=== PATIENT | female | born 1960 | race Caucasian/White ===

== ENCOUNTER 2016-06-30 10:26 | Emergency (ER) | payer MEDICAID ==
[~2016-06-30] VITALS: Ht 160 cm; Wt 91.0 kg
[~2016-06-30 10:26] MED LIST: HYDR-3498 PO; NAPR-688 PO
[2016-06-30 10:31] VITALS: Ht 160 cm; Wt 91.0 kg
[2016-06-30] MEDS ORDERED: hydrALAzine 20 MG INJ IV ONE (11:00)
--- NOTE | 2016-06-30 11:18 | RADRPT ---
PROCEDURE: XR Chest. CLINICAL INDICATION: Chest pain TECHNIQUE: Single frontal view of the chest was obtained. COMPARISON: 01/01/2015 FINDINGS: The heart is within normal limits. The thoracic aorta is calcified. The lungs are clear. There is no pleural effusion or pneumothorax. RPTAT: AA IMPRESSION: No acute disease. Calcified aorta consistent with atherosclerotic disease. .Tyson Hernandez MD, MD Date Time Electronically viewed and signed by .Tyson Hernandez MD, on 06/30/2016 11:18 .S/
[2016-06-30 12:10] LABS: ADD SCAN DIFF NO
[2016-06-30 12:11] LABS: BASOPHILS % 0.2 % (0.0-2.0); EOSINOPHILS # 0.1 10^3/ul (0.0-0.5); EOSINOPHILS % 2.3 % (0.0-7.0); HEMATOCRIT 38.6 % (37.0-47.0); HEMOGLOBIN 13.4 g/dl (12.0-16.0); LYMPHOCYTES # 1.6 10^3/ul (0.8-2.9); LYMPHOCYTES % 30.9 % (15.0-51.0); MEAN CORPUSCULAR HEMOGLOBIN 27.9 pg (29.0-33.0); MEAN CORPUSCULAR HGB CONC 34.7 g/dl (32.0-37.0); MEAN CORPUSCULAR VOLUME 80.4 fl (82.0-101.0); MEAN PLATELET VOLUME 10.8 fl (7.4-10.4); MONOCYTE # 0.4 10^3/ul (0.3-0.9); MONOCYTES % 6.6 % (0.0-11.0); NEUTROPHIL # 3.2 10^3/ul (1.6-7.5); NEUTROPHILS % 59.8 % (39.0-77.0); PLATELET COUNT 183 10^3/UL (140-415); RED CELL DISTRIBUTION WIDTH 13.1 % (11.5-14.5); WHITE BLOOD COUNT 5.3 10^3/ul (4.8-10.8)
[2016-06-30 12:29] LABS: INR 1.02; PROTIME 13.4 Sec (12.2-14.2)
[2016-06-30 12:32] LABS: ANION GAP 11 (8-16); BLOOD UREA NITROGEN 13 mg/dl (7-20); CALCIUM 8.6 mg/dl (8.4-10.2); CARBON DIOXIDE 26 mmol/L (21-31); CHLORIDE 106 mmol/L (97-110); CREATININE 0.55 mg/dl (0.44-1.00); GLUCOSE 102 mg/dl (70-220); POTASSIUM 3.6 mmol/L (3.5-5.1); SODIUM 139 mmol/L (135-144)
[2016-06-30 12:45] LABS: TROPONIN-I < 0.010 ng/ml (0.00-0.12)
[2016-06-30] MEDS ORDERED: HYD25 PO (12:52)
--- NOTE | 2016-06-30 12:52 | ERD ---
ER Documentation Chief Complaint Date/Time DATE: 06/30/16 TIME: 12:50 Chief Complaint pt sent by clinic with HTN, clondine given there, pt has NO hx htn HPI This is a 35-year-old female who presents to the emergency room after being sent by her clinic for evaluation of hypertension. This patient has no history of hypertension in the past. This patient was given 0.1 mg of clonidine p.o. She has no complaints of chest pain, dizziness, headache, shortness of breath or palpitations. She has no complaints at all and came to the ER for evaluation of asymptomatic hypertension ROS All systems reviewed and are negative except as per history of present illness. Medications Home Meds Discontinued Scripts Naproxen* (Naproxen*) 500 Mg Tablet, 500 MG PO BID Y for PAIN, #30 TAB Prov:CORY DIXON DO 05/27/15 Hydrocodone Bit-Acetaminophen* ([place]*) 5-325 Mg Tab, 1 TAB PO Q6 Y for PAIN, # 20 TAB Prov:CORY DIXON DO 05/27/15 Allergies Allergies: Coded Allergies: No Known Allergy (Unverified , 06/30/16) PMhx/Soc Medical and Surgical Hx: pt denies Medical Hx, pt denies Surgical Hx History of Surgery: Yes (tubal ligation, hernia surgery) Anesthesia Reaction: No Hx Neurological Disorder: No Hx Respiratory Disorders: No Hx Cardiac Disorders: No Hx Psychiatric Problems: No Hx Miscellaneous Medical Probl: No Hx Alcohol Use: No Hx Substance Use: No Hx Tobacco Use: No Smoking Status: Never smoker Physical Exam Vitals Vital Signs Date Time Temp Pulse Resp B/P Pulse Ox O2 Delivery O2 Flow Rate FiO2 06/30/16 12:12 Nasal Cannula 06/30/16 10:31 98.3 84 16 243/117 97 Physical Exam INITIAL VITAL SIGNS: Reviewed by me GENERAL: The patient is well developed and appropriate for usual state of health in no apparent distress HEENT: Pupils equal, round, and reactive to light. EOMI. There is no scleral icterus. NECK: C-spine is soft and supple, there is no meningismus. There is no cervical lymphadenopathy. LUNGS: Clear to auscultation bilaterally. There are no rales, wheezes or rhonchi. HEART: Regular rate and rhythm, no murmurs, clicks, rubs or gallops. ABDOMEN: Soft, non-tender, non-distended. There are bowel sounds in all four quadrants. No rebound or guarding. EXTREMITIES: There is no peripheral cyanosis or edema. No focal swelling or erythema. NEUROLOGICAL: The patient moves all four extremities with 5/5 strength. Cranial nerves II - XII are intact. Normal gait. Alert and oriented SKIN: There is no apparent rash or petechiae. HEME/LYMPHATIC: There is no evidence of excessive bruising or lymphedema. PSYCHIATRIC: The patient does not appear anxious or depressed. Result Diagram: 06/30/16 1155 06/30/16 1155 Results 24 hrs Laboratory Tests Test 06/30/16 11:55 White Blood Count 5.310^3/ul Red Blood Count 4.8010^6/ul Hemoglobin 13.4g/dl Hematocrit 38.6% Mean Corpuscular Volume 80.4fl Mean Corpuscular Hemoglobin 27.9pg Mean Corpuscular Hemoglobin Concent 34.7g/dl Red Cell Distribution Width 13.1% Platelet Count 09812^3/UL Mean Platelet Volume 10.8fl Neutrophils % 59.8% Lymphocytes % 30.9% Monocytes % 6.6% Eosinophils % 2.3% Basophils % 0.2% Nucleated Red Blood Cells % 0.0/100WBC Neutrophils # 3.210^3/ul Lymphocytes # 1.610^3/ul Monocytes # 0.410^3/ul Eosinophils # 0.110^3/ul Basophils # 0.010^3/ul Nucleated Red Blood Cells # 0.010^3/ul Prothrombin Time 13.4Sec Prothrombin Time Ratio 1.0 INR International Normalized Ratio 1.02 Activated Partial Thromboplast Time 27.0Sec Sodium Level 139mmol/L Potassium Level 3.6mmol/L Chloride Level 106mmol/L Carbon Dioxide Level 26mmol/L Anion Gap 11 Blood Urea Nitrogen 13mg/dl Creatinine 0.55mg/dl Glucose Level 102mg/dl Calcium Level 8.6mg/dl Troponin I < 0.010ng/ml Current Medications Medications (Trade) Dose Ordered Sig/Arjun Route PRN Reason Start Time Stop Time Status Last Admin Dose Admin Hydralazine HCl (Apresoline) 10 mg ONCE ONCE IV 06/30/16 11:00 06/30/16 11:53 DC Procedures/MDM EKG: Rate/Rhythm: [Normal Sinus Rhythm] QRS, ST, T-waves: [No changes consistent w/ acute ischemia] Impression: [No evidence of ischemia or arrhythmia] Chest X-ray 1V Interpreted by me: Soft Tissue: No acute abnormalities Bones: No acute abnormalities Mediastinum/Cardiac Silhouette/Lungs: [No acute abnormalities] This 45-year-old female presents to the emergency room for evaluation of hypertension. This patient was given clonidine prior to arrival in the emergency room. EKG was obtained which is nonischemic. Chest x-ray is clear, lab work does not demonstrate any abnormalities. Troponin is negative. This patient's blood pressure is 143/62 at this time. She is in no acute distress. She is alert oriented to person place and time. Given this patient's asymptomatic hypertension I did prescribe hydrochlorothiazide for the next 2 weeks until she is able to get an appointment with the clinic to be started on long-term antihypertensive medications. Departure Diagnosis: Primary Impression: Uncontrolled hypertension Condition: Stable BERRY BRICEÑO DO Jun 30, 2016 12:52
== END 2016-06-30 13:05 | disposition home or self-care (01) ==
LOC: E/R 10:26
DX: I10 Essential (primary) hypertension (principal); R07.9 Chest pain, unspecified
CPT/HCPCS: 36415; 71010; 80048; 84484; 85025; 85610; 85730; 96374; Z7502; 93005

== ENCOUNTER 2017-08-08 16:21 | Emergency (ER) | END 2017-08-08 17:50 | disposition home or self-care (01) ==

== ENCOUNTER 2018-09-28 16:54 | Emergency (ER) | payer MEDICAID, OTHER ==
[~2018-09-28] VITALS: Ht 149.9 cm; Wt 88.2 kg
[~2018-09-28 16:54] MED LIST changes: +FAMO-96 PO; -HYDR-3498 PO; +HYDR25TA6 PO; -NAPR-688 PO; +NAPR-985 PO
[2018-09-28 16:58] VITALS: BP 135/66; PULSE 75; RESP 16; Ht 149.9 cm; Wt 88.2 kg
[2018-09-28] MEDS ORDERED: IBUP800T48 PO (18:10)
--- NOTE | 2018-09-28 18:11 | ERD ---
ER Documentation Chief Complaint Chief Complaint R foot pain x12d denies trauma. steady gait. no meds taken HPI 57 year old female presents complaining of pain in right foot x 2 weeks. She reports the pain is located at the bottom of her foot and radiates to the top as well. She states the pain is 8/10 intensity when walking and improves with rest. She states the pain is a "stabbing pain." The pain began with a sudden onset. She denies and previous injury to the foot. She has taken ibuprofen with little relief. Past med hx: HTN ROS All systems reviewed and are negative except as per history of present illness. Medications Home Meds Active Scripts Ibuprofen* (Motrin*) 800 Mg Tab, 800 MG PO Q6H PRN for PAIN AND OR ELEVATED TEMP, #30 TAB Prov:DANIEL PATE PA-C 09/28/18 Famotidine* (Pepcid*) 20 Mg Tablet, 20 MG PO BID for 10 Days, #20 TAB Prov:WILMAN,LOLY 08/08/17 Naproxen* (Naprosyn*) 500 Mg Tablet, 500 MG PO BID PRN for PAIN AND/OR INFLAMMATION for 10 Days, #20 TAB Prov:WILMAN,LOLY 18 Hydrochlorothiazide* (Hydrochlorothiazide*) 25 Mg Tab, 25 MG PO DAILY, #30 TAB Prov:BERRY BRICEÑO DO 06/30/16 Allergies Allergies: Coded Allergies: No Known Allergy (Unverified , 06/30/16) PMhx/Soc History of Surgery: Yes (tubal ligation, hernia surgery) Anesthesia Reaction: No Hx Neurological Disorder: No Hx Respiratory Disorders: No Hx Cardiac Disorders: No Hx Psychiatric Problems: No Hx Miscellaneous Medical Probl: No Hx Alcohol Use: No Hx Substance Use: No Hx Tobacco Use: No FmHx Family History: No diabetes Physical Exam Vitals Vital Signs Date Temp Pulse Resp B/P (MAP) Pulse Ox O2 O2 Flow FiO2 Time Delivery Rate 09/28/18 98.3 75 16 135/66 97 16:58 (89) Physical Exam Const: No acute distress Head: Atraumatic Eyes: Normal Conjunctiva ENT: Normal External Ears, Nose and Mouth. Neck: Full range of motion. No meningismus. Resp: Clear to auscultation bilaterally Cardio: Regular rate and rhythm, no murmurs Abd: Soft, non tender, non distended. Normal bowel sounds Skin: No petechiae or rashes Back: No midline or flank tenderness Ext: No cyanosis, or edema Right foot: unspecific tenderness across the bottom of the foot. Tenderness across the top of the foot Neur: Awake and alert Psych: Normal Mood and Affect Procedures/MDM ED COURSE: The patient was stable throughout ED course. I kept the patient informed of laboratory and diagnostic imaging results throughout the ED course. DIAGNOSTIC IMAGING: Discussed with pt. not needed at this time PROCEDURES: none MEDICATIONS GIVEN: Patient tolerated medication well with no adverse reactions. Patient reported improvement in pain. MEDICAL DECISION MAKING: Patient is a 57 year old female presenting with sudden onset of pain in her right foot. She states the pain starts at the bottom of the foot and radiates across the top. Nothing makes it better besides rest and worsens with walking. Based on H&P, I believe she is suffering from tendinitis. I have low suspicion for fracture, Charcot foot, dislocation, septic joint, osteomyelitis. Vital signs were reviewed. Patient is afebrile. Patient was not hypoxic. Patient was hemodynamically stable. Patient was told to follow up with primary care for further care and management. PRESCRIPTION: motrin DISCHARGE: At this time, patient is stable for discharge and outpatient management. I have instructed the patient to follow-up with his/her primary care physician in 1-2 days. I have discussed with the patient the possibility of needing to see a specialist for further workup and imaging studies if symptoms persist. I have instructed the patient to promptly return to the ER for any new or worsening symptoms including increased pain, fever, nausea, vomiting, weakness or LOC. The patient expressed understanding of and agreement with this plan. All questions were answered. Home care instructions were provided. Disclaimer: Inadvertent spelling and grammatical errors are likely due to EHR/dictation software use and do not reflect on the overall quality of patient care. Also, please note that the electronic time recorded on this note does not necessarily reflect the actual time of the patient encounter. Departure Diagnosis: Primary Impression: Tendinitis of right foot Condition: Fair Patient Instructions: Tendonitis Referrals: COMMUNITY CLINICS YOU HAVE RECEIVED A MEDICAL SCREENING EXAM AND THE RESULTS INDICATE THAT YOU DO NOT HAVE A CONDITION THAT REQUIRES URGENT TREATMENT IN THE EMERGENCY DEPARTMENT. FURTHER EVALUATION AND TREATMENT OF YOUR CONDITION CAN WAIT UNTIL YOU ARE SEEN IN YOUR DOCTORS OFFICE WITHIN THE NEXT 1-2 DAYS. IT IS YOUR RESPONSIBILITY TO MAKE AN APPOINTMENT FOR FOLOW-UP CARE. IF YOU HAVE A PRIMARY DOCTOR --you should call your primary doctor and schedule an appointment IF YOU DO NOT HAVE A PRIMARY DOCTOR YOU CAN CALL OUR PHYSICIAN REFERRAL HOTLINE AT IF YOU CAN NOT AFFORD TO SEE A PHYSICIAN YOU CAN CHOSE FROM THE FOLLOWING [facility] [address] [facility] [address] [facility] [address] [facility] [address] [facility] [address] [facility]. [facility] [address] [facility]. [facility] YOU HAVE RECEIVED A MEDICAL SCREENING EXAM AND THE RESULTS INDICATE THAT YOU DO NOT HAVE A CONDITION THAT REQUIRES URGENT TREATMENT IN THE EMERGENCY DEPARTMENT. FURTHER EVALUATION AND TREATMENT OF YOUR CONDITION CAN WAIT UNTIL YOU ARE SEEN IN YOUR DOCTORS OFFICE WITHIN THE NEXT 1-2 DAYS. IT IS YOUR RESPONSIBILITY TO MAKE AN APPOINTMENT FOR FOLOW-UP CARE. IF YOU HAVE A PRIMARY DOCTOR --you should call your primary doctor and schedule and appointment IF YOU DO NOT HAVE A PRIMARY DOCTOR YOU CAN CALL OUR PHYSICIAN REFERRAL HOTLINE AT . IF YOU CAN NOT AFFORD TO SEE A PHYSICIAN YOU CAN CHOSE FROM THE FOLLOWING [facility] INSTITUTIONS: [facility] [address] [place] [address] [facility] [address] [place] [address] [facility] + [facility] [address] [place] [address] [facility] Care 7 a.m.- 11 p.m. Every Day of the Week NO APPOINTMENT OR AUTHORIZATION NEEDED SO [facility] Hours: Mon-Fri 9:00 AM - 5:00 PM Additional Instructions: Llame al doctor MAANA y gabby olayinka SHANNA PARA DENTRO DE 1-2 GEIGER.Dgale a la secretaria que nosotros le instruimos hacer esta shanna.Avise o llame si oneal condicin se empeora antes de la shanna. Regresa aqui si peor o no mejor. DANIEL PATE PA-C Sep 28, 2018 18:11
== END 2018-09-28 18:58 | disposition home or self-care (01) ==
LOC: FTE 16:54
DX: M77.9 Enthesopathy, unspecified (principal)
CPT/HCPCS: 99282